=== PATIENT | male | born 1985 | race Caucasian/White ===

== ENCOUNTER 2019-09-15 13:03 | Emergency (ER) | payer SELFPAY ==
[2019-09-15 13:04] VITALS: BP 150/95; PULSE 75; RESP 14; TEMP 36.6; O2SAT 96; BMI 34.5
--- NOTE | 2019-09-15 14:07 | ED.DCSUM_ITS ---
- ER Visit Summary Date of Service: 09/15/19 Chief Complaint: [Headache] History of Present Illness: The patient is a 34 M [presents to the emergency department with 2-day history of persistent headache. Patient states that initially it started while driving back from [place] 2 days ago and was gradual and mild at first. Yesterday patient had multiple episodes of vomiting. Patient states the pain is throbbing and involving the left side of his head. He has history of frequent migraines. Patient's had neurologic evaluation in the past for these. Patient denies any falls or head injuries. He denies any fever or recent illness. Patient does complain of some photophobia.] Physical Examination: [HEENT-PERRLA, EOMI. Cranial nerves II through XII grossly intact. TMs clear. Mucous membranes moist. No adenopathy. Cardiovascular-regular rate and rhythm without murmur or ectopy Lungs-clear to auscultation, chest wall stable without crepitus or subcu emphysema Abdomen-normoactive bowel sounds, soft, nontender, no rebound or rigidity, no peritoneal signs. Neuro [id number] and heel corea testing within normal limits, negative Romberg, negative for drift, fundi benign. Extremities-intact ?4, normal range of motion, normal pulses, atraumatic] Test Results: [None indicated] Emergency Department Course and Treatment: [Patient had an IV line established and he was given a liter normal same fluid bolus as well as Reglan 10 mg IV, Benadryl 25 mg IV, and Toradol 30 mg IV. Patient's headache resolved.] Treatment Plan: [Patient follow-up with primary care physician transaction coordinator for no doc within next 3 to 5 days. Patient advised to return if worsening headache, difficulty with balance or speech, or conditions worsen anyway.] Disposition: [Discharged home in stable condition] Impression: [Migrainous cephalgia-resolved] This note was generated with [employer]onge dictation software. It may contain incorrect words, spelling, and punctuation that were not noted in review of the chart prior to signing ED Disposition - Plan for ED Patient: Referrals: NOT,DEFINED [NON-STAFF] -
[2019-09-15] MEDS: DiphenhydrAMINE 50 MG/ML Syringe 25 MG IV (14:22)
[2019-09-15] MEDS: Ketorolac 30 MG/ML Syringe IV (14:22)
[2019-09-15] MEDS: Metoclopramide 10 MG/2 ML Vial IV (14:22)
[2019-09-15] MEDS: 0.9% Normal Saline 1,000 ML 1000 ML IV (14:23)
--- NOTE | 2019-09-15 15:18 | ED.DEP ---
ED Disposition - Plan for ED Patient: Instructions: ED, Migraine (Classical) Referrals: NOT,DEFINED [NON-STAFF] - Regino Casas DO [STAFF PHYSICIAN] - 3-5 Days
[2019-09-15 15:30] VITALS: BP 124/76; PULSE 64; RESP 18; O2SAT 99
--- NOTE | 2019-09-15 15:30 | ED.RN ---
PT GIVEN WRITTEN AND VERBAL DISCHARGE INSTRUCTIONS AND HOME GOING PAPERS. PT EDUCATED ON INSTRUCTIONS AND FOLLOW UP. PT VERBALIZES UNDERSTANDING. EDUCATED NOT TO DRIVE AFTER HAVING BENADRYL FOR 6 HOURS BECAUSE OF DROWSINESS. PT VERBALIZES UNDERSTANDING, REPORTS IS DRIVING HOME. PT IV D/C AND COVERED WITH 2X2 GAUZE AND PAPER TAPE. PT AMBULATES OUT OF DEPT WITH .
== END 2019-09-15 15:32 | disposition home or self-care (01) ==
LOC: ED 14:23
PROVIDERS: Emergency Provider Emergency Medicine
DX: G43.909 Migraine, unspecified, not intractable, without status migrainosus (principal)
CPT/HCPCS: 99283; J7030

== ENCOUNTER 2022-01-30 18:25 | Emergency (ER) | payer SELFPAY ==
[2022-01-30 18:26] VITALS: BP 168/104; PULSE 107; RESP 18; TEMP 35.8; BMI 36.8
[2022-01-30 18:56] VITALS: BP 151/97
[2022-01-30 19:12] LABS: Hematocrit 44.8 % (40-54); Hemoglobin 15.3 g/dL (13.0-16.5); Mean Corp Hgb Conc 34.2 g/dL (32-36); Mean Corpuscular Hgb 29.1 pg (27.0-32.0); Mean Corpuscular Volume 85.2 fL (80-94); Mean Platelet Vol. 9.5 fl (6.2-12.0); Platelet Count 283 K/mm3 (150-450); RBC Distribution Width CV 12.5 % (11.6-14.6); RBC Distribution Width SD 38.7 fl (35.1-43.9); Red Blood Count 5.26 M/mm3 (4.6-6.2); White Blood Count 11.6 K/mm3 (4.4-11.0)
[2022-01-30 19:24] LABS: Anion Gap 3 (5-15); BUN 15 mg/dL (7-18); BUN/Creat Ratio 15.2 RATIO (10-20); Chloride 107 mmol/L (98-107); Creatinine, Serum 0.99 mg/dL (0.70-1.30); EST Glomerular Filtration Rate 90 mL/min (>60); Est Glom Filt Rate - Afr Amer 109 mL/min (>60); Estimated Creatinine Clearance 118.78 ml/min; Glucose 149 mg/dL (74-106); Potassium 3.8 mmol/L (3.5-5.1); Sodium Level 139 mmol/L (136-145)
--- NOTE | 2022-01-30 21:09 | EDS_ITS ---
HPI History of Present Illness Chief Complaint: Abn Labs Informant: patient Onset/Context/Timing Onset: Weeks Context: Gradual Onset Timing: Intermittent Current Severity: Mild Maximum Severity: Mild Narrative Narrative: 36-year-old male who goes to [facility] with the clinic here in [place] run my nurse practitioners. They have been watching him for some time for elevated blood pressure. They have just recently started him on losartan which I gave him a prescription today. His pressure was high in the office to give him a dose of hydralazine. They sent labs a troponin which was normal and a total CK which was elevated so they sent him in the emergency department. He has no other complaints. Prior similar symptoms: Yes Recent Illness/Hospitalization: No PFSH [facility] Medical History Anxiety Home Medications NK 09/15/19 [History Last Taken Unknown] Allergy/AdvReac Type Severity Reaction Status Date / Time No Known Allergies Allergy Verified 01/30/22 18:26 Social History Smoking Status: Never smoker ROS ROS ED ROS Narrative Denies. Review of Systems ROS Unobtainable: Denies due to encephalopathy Constitutional Constitutional ED: Denies fever(s) Eyes Eyes: Denies change in vision ENT ENT ED: Denies ear pain Cardiovascular Cardiovascular: Denies chest pain Respiratory/Chest Respiratory/Chest: Denies dyspnea Gastrointestinal Gastrointestinal: Denies abdominal pain Musculoskeletal Musculoskeletal: Denies myalgias Neurologic Neurologic: Denies headache(s) Psychiatric Psychiatric: Denies depression Endocrine Endocrinology: Denies polyuria Allergic/Immunologic Allergic/Immunologic ED: Denies urticaria EXAM Physical Exam Narrative Exam Narrative: 36 male no acute distress vital signs stable with blood pressure elevated 168/104. He does not look septic toxic. H EENT exam unremarkable. Neck nontender. Lungs clear to auscultation. Heart regular rhythm no murmur. Abdomen soft nontender normal bowel sounds no peritoneal signs. Moving all 4 extremities. Calves are nontender without edema or cords. Neurologically patient is awake alert with no focal motor deficits. Exam benign. Const Vital Signs: 01/30/22 18:26 01/30/22 18:56 Temperature 96.5 F L Temperature Source Temporal Pulse Rate 107 H Respiratory Rate 18 Respiratory Pattern Normal Blood Pressure 168/104 H 151/97 H Blood Pressure Mean 125 115 Positive well nourished, well developed and obese; Negative for cachectic, contractures or unkempt General Appearance ED: well developed and NAD; Negative for unkempt, cachectic, contractures, cyanotic, diaphoretic or pallor Nutritional Appearance: obese; Negative for cachectic HEENT Reports moist mucous membranes Negative for trauma or tenderness Eyes PERRL and EOMs intact bilaterally General Eye ED: Negative for pale conjunctiva or scleral icterus Neck no lymphadenopathy, supple and no JVD General: Negative for tenderness Chest Wall inspection of chest normal and palpation of chest normal Resp normal respiratory effort and clear to auscultation bilaterally Effort and Inspection: Negative for pain with movement Auscultation: Negative for rales, rhonchi, wheezes or diminished lung sounds Cardio regular rate, regular rhythm, S1 normal heart sound, S2 normal heart sound and no murmurs GI normal to inspection, nondistended, normoactive bowel sounds, non-tender, non- distended and no masses Auscultation: normoactive bowel sounds Palpation: soft; Negative for tender or guarding Back/Spine no CVA tenderness General Back: Negative for CVA tenderness Cervical Spine: Negative for cervical spine tenderness Thoracic Spine / Upper Back: Negative for thoracic spinal tenderness Extremity normal to inspection General Extremety ED: Negative for edema or tenderness General Extremity: Negative for edema Neuro oriented x3 and CN's II-XII intact bilaterally Sensorium / Orientation: alert; Negative for orientation impaired, lethargic or stuporous Motor Exam: strength 5/5 throughout Psych mental status grossly normal Appearance: Negative for unkempt Attitude: No agitated Mood & Affect: Negative for depressed, anxious or tearful Skin no rashes or lesions noted and no wounds General Skin Exam: Negative for jaundice or pallor MDM MDM MDM Narrative Medical decision making narrative: 36-year-old male with hypertension that has not been treated till today. They started him on losartan. He has a prescription at the pharmacy days already picked up. He was also given hydralazine in the office. I did speak screening labs are unremarkable his normal BUN and creatinine. He can do outpatient follow-up. Repeat exam he is doing well at 9:12 PM. Blood pressure is 151/97. He will be discharged home to start his blood pressure medication. Of instructed to log his blood pressures daily and follow-up with his primary care provider to have them adjust his blood pressure medications as needed. I will instruct him that I do not think he needs initially both blood pressure medications until they determine if the losartan is controlling his blood pressure appropriately. I did attempt to call his nurse practitioner and their office and was unsuccessful. Lab Data Attestation: I reviewed the patient's lab results. Lab results narrative: CBC shows a white count of 11. H&H of 15 and 44. Electrolytes unremarkable gap of 3 normal BUN of 15 creatinine 0.9 glucose 149. Labs: Laboratory Results - last 24 hr 01/30/22 01/30/22 19:00 19:00 WBC 11.6 H RBC 5.26 Hgb 15.3 Hct 44.8 MCV 85.2 MCH 29.1 MCHC 34.2 RDW Std Deviation 38.7 RDW Coeff of Maciej 12.5 Plt Count 283 MPV 9.5 Sodium 139 Potassium 3.8 Chloride 107 Carbon Dioxide 29.0 Anion Gap 3 L BUN 15 Creatinine 0.99 Estim Creat Clear Calc 118.78 Est GFR (MDRD) Af Amer 109 Est GFR (MDRD) Non-Af 90 BUN/Creatinine Ratio 15.2 Glucose 149 H Calcium 9.0 Discharge Plan Triage Chief Complaint: Abn Labs ED Provider: Lorne Siegel Dx/Rx/DC Orders Clinical Impression: Hypertension Instructions: ED Hypertension, Established Prescriptions: No Action NK RF: 0 Primary Care Provider: Ronna Kaufman NP Referrals: Ronna Kaufman WOOD POLE TREATER, WOOD POLE TREATER-C [Primary Care Provider] - 3-5 Days Activity Restrictions/Additional Instructions: Start the blood pressure medication daily I would use in the evening. Log your blood pressure twice daily. Show those readings your primary care provider so they can decide if they need to adjust your blood pressure medication. I would start with only the losartan. I would not start with 2 medications because they may drop your blood pressure too much. If the losartan does not control your blood pressure well they can always adjust the dose before they add a second medication. Disposition Disposition: Home, Self Care
[2022-01-30 21:17] VITALS: BP 143/95; PULSE 74; O2SAT 97
== END 2022-01-30 21:20 | disposition home or self-care (01) ==
PROVIDERS: Emergency Provider Emergency Medicine; PCP Nurse Practitioner Family; Visit Provider Emergency Medicine
DX: I10 Essential (primary) hypertension (principal); Z79.899 Other long term (current) drug therapy
CPT/HCPCS: 80048; 85027; 99283; A4216

== ENCOUNTER 2022-03-04 14:45 | Emergency (ER) | payer SELFPAY ==
[2022-03-04 14:46] VITALS: BP 151/94; PULSE 85; RESP 22; TEMP 36.5; O2SAT 99; BMI 36.9
--- NOTE | 2022-03-04 14:57 | NURSING ---
NO OLD EKGS
--- NOTE | 2022-03-04 15:08 | EKG12_ITS ---
Test Reason : CP Blood Pressure : / mmHG Vent. Rate : 082 BPM Atrial Rate : 082 BPM P-R Int : 168 ms QRS Dur : 086 ms QT Int : 360 ms P-R-T Axes : 036 015 009 degrees QTc Int : 420 ms Normal sinus rhythm Normal ECG Confirmed by WERO HUTCHINS, NICHELLE ([id number]), editor city JOEL CHEEK ([id number]) on 03/05/2022 1:02:08 PM Referred By: Confirmed By:NICHELLE CONTEH MD
--- NOTE | 2022-03-04 15:08 | RAD_ITS ---
STUDY: X-RAY CHEST REASON FOR EXAM: Male, 36 years old. chest pain TECHNIQUE: Single AP portable view of the chest. COMPARISON: None. FINDINGS: The lungs are clear and expanded. Elevated right hemidiaphragm. Normal size heart. Normal mediastinum and brenda. Normal visualized pulmonary arteries. Normal visualized aortic arch and descending thoracic aorta. Normal visualized thoracic spine. Normal visualized ribs, clavicles, and shoulders. There is no demonstrated abnormality of the visualized soft tissue structures of the upper abdomen. RAD/Chest 1 View (Portable) IMPRESSION: Normal x-ray examination of the chest. Electronically Signed: Aashish Sanchez MD at 16:01 EDT ,
--- NOTE | 2022-03-04 15:09 | ED.VIS.CHEST ---
HPI History of Present Illness Chief Complaint: Chest Pain Informant: patient and spouse/S.O. Narrative Narrative: 36-year-old male presenting to the emergency room for evaluation of chest pain. Patient states that he has recently begun treatment for hypertension. He takes hydralazine and HCTZ and losartan. He tells me that he has been experiencing chest tightness and tightness in his jaw. He states that his left hand is numb for the past 3 days. 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 He states that he feels that these episodes are happening when his blood pressure elevates. He states at times his blood pressure can be 120/80 and other times it can be 180/110. He states that he is trying to get health insurance so that he can get additional testing done. [facility] Medical History (Updated 03/04/22 @ 16:[address] Adalberto Landeros DO) Anxiety Hypertension Home Medications cholecalciferol (vitamin D3) [Vitamin D3] 125 mcg PO DAILY 03/04/22 [History Last Taken Unknown] hydralazine 25 mg PO DAILY 03/04/22 [History Last Taken Unknown] hydrochlorothiazide 25 mg PO DAILY 03/04/22 [History Last Taken Unknown] lamotrigine 25 mg PO DAILY 03/04/22 [History Last Taken Unknown] losartan 30 mg PO DAILY 03/04/22 [History Last Taken Unknown] riboflavin (vitamin B2) 400 mg PO DAILY 03/04/22 [History Last Taken Unknown] trazodone 100 mg PO DAILY 03/04/22 [History Last Taken Unknown] Allergy/AdvReac Type Severity Reaction Status Date / Time No Known Allergies Allergy Verified 03/04/22 14:46 Social History (Updated 03/04/22 @ 15:[address] Adalberto Landeros DO) household members: spouse and children current gender identity: male Smoking Status: Never smoker ROS ROS ED Constitutional Constitutional ED: Denies chills, fever(s) or weight loss Eyes Eyes: Denies change in vision or diplopia ENT ENT ED: Denies ear pain, rhinorrhea or sore throat Cardiovascular Cardiovascular: Reports chest pain; Denies orthopnea, palpitations or racing heartbeat Respiratory/Chest Respiratory/Chest: Reports dyspnea; Denies cough or orthopnea Gastrointestinal Gastrointestinal: Denies abdominal pain, diarrhea, nausea or vomiting Genitourinary Genitourinary ED: Denies dysuria, hematuria or urinary frequency Musculoskeletal Musculoskeletal: Reports neck pain; Denies arthralgias or myalgias Integumentary Denies abscess or rash Neurologic Neurologic: Reports paresthesias; Denies headache(s) or weakness Psychiatric Psychiatric: Denies anxiety, depression, suicidal ideation or suicidal thoughts Endocrine Endocrinology: Denies polydipsia, polyphagia or polyuria Allergic/Immunologic Allergic/Immunologic ED: Denies mouth swelling, tongue swelling or urticaria EXAM Physical Exam Const Vital Signs: 03/04/22 14:46 03/04/22 14:56 Temperature 97.7 F L Temperature Source Temporal Pulse Rate 85 Respiratory Rate 22 H Respiratory Effort Short of Breath Blood Pressure 151/94 H Blood Pressure Mean 113 Pulse Ox 99 Oxygen Delivery Method Room Air Positive well nourished and well developed General Appearance ED: well developed HEENT Reports normocephalic, head/scalp atraumatic and moist mucous membranes normocephalic and atraumatic Eyes PERRL and EOMs intact bilaterally Neck no lymphadenopathy, supple and no JVD Resp normal respiratory effort and clear to auscultation bilaterally Cardio regular rate, regular rhythm and no murmurs GI normal to inspection, nondistended, normoactive bowel sounds and non-tender Palpation: soft Back/Spine no CVA tenderness and normal ROM Extremity normal to inspection General Extremety ED: Negative for edema General Extremity: Negative for edema Neuro oriented x3 and CN's II-XII intact bilaterally Sensorium / Orientation: alert Motor Exam: strength 5/5 throughout Psych mental status grossly normal Mood & Affect: Negative for depressed or tearful Skin no rashes or lesions noted and no wounds MDM MDM MDM Narrative Medical decision making narrative: My interpretation of the chest x-ray is no acute process. CBC D-dimer troponin and CMP were normal. On repeat examination the patient is doing better. His blood pressure is down to 125/76. Patient was advised of his lab EKG and chest x-ray findings. Due to financial reasons patient would like to continue to try to this as an outpatient which I think is an understandable concern. We talked about taking an extra hydralazine when his pressure rises. We talked about potentially needing to see a spares scheduler if things continue. Lab Data Attestation: I reviewed the patient's lab results. Labs: Laboratory Results - last 24 hr 03/04/22 03/04/22 03/04/22 15:12 15:12 15:12 WBC 11.4 H RBC 4.95 Hgb 14.6 Hct 42.9 MCV 86.7 MCH 29.5 MCHC 34.0 RDW Std Deviation 39.8 RDW Coeff of Maciej 12.9 Plt Count 272 MPV 9.8 Immature Gran % (Auto) 0.400 Neut % (Auto) 61.4 Lymph % (Auto) 28.7 Darke % (Auto) 7.8 Eos % (Auto) 1.3 Baso % (Auto) 0.4 Absolute Neuts (auto) 7.0 Absolute Lymphs (auto) 3.26 Nucleated RBC % 0 D-Dimer Quant (PE/DVT) < 0.27 L Sodium 142 Potassium 3.7 Chloride 109 H Carbon Dioxide 27.0 Anion Gap 6 BUN 16 Creatinine 0.97 Estim Creat Clear Calc 117.84 Est GFR (MDRD) Af Amer 111 Est GFR (MDRD) Non-Af 92 BUN/Creatinine Ratio 16.4 Glucose 100 Calcium 8.5 Total Bilirubin 0.40 AST 25 ALT 55 Alkaline Phosphatase 54 Troponin I High Sens 5 Total Protein 6.6 Albumin 3.7 Globulin 2.9 Albumin/Globulin Ratio 1.3 Radiography Diagnostic Testing: Clinical Impression(s) from Imaging Studies Chest X-Ray 03/04/22 15:08 IMPRESSION: Normal x-ray examination of the chest. Electronically Signed: Aashish Sanchez MD at 16:01 EDT , EKG Initial EKG: Attestation: I personally reviewed and interpreted this EKG as follows: Comments: Normal sinus rhythm with a ventricular rate of 82 bpm Discharge Plan Triage Chief Complaint: Chest Pain Other Complaint: Hypertension ED Provider: Adalberto Landeros Dx/Rx/DC Orders Clinical Impression: Chest pain, Hypertension Instructions: ED Chest Pain, Uncertain Cause Prescriptions: No Action losartan 50 mg tablet 30 mg PO DAILY RF: 0 hydralazine 25 mg tablet 25 mg PO DAILY RF: 0 lamotrigine 25 mg tablet 25 mg PO DAILY RF: 0 trazodone 100 mg tablet 100 mg PO DAILY RF: 0 hydrochlorothiazide 25 mg tablet 25 mg PO DAILY RF: 0 cholecalciferol (vitamin D3) [Vitamin D3] 125 mcg (5,000 unit) Tablet 125 mcg PO DAILY RF: 0 riboflavin (vitamin B2) 400 mg Tablet 400 mg PO DAILY RF: 0 Primary Care Provider: Ronna Kaufman NP Referrals: Ronna Kaufman NP, FILLER SHREDDER HELPER-C [Primary Care Provider] - As soon as possible Disposition Disposition: Home, Self Care
[2022-03-04] MEDS: Aspirin 81 MG TAB.CHEW 324 MG PO (15:12)
[2022-03-04 15:17] LABS: Absolute Lymphocyte Count 3.26 X10^3/uL (0.83-4.51); Basophil# 0.05 X10^3/uL; Basophil% 0.4 % (0-1); Eosinophil# 0.15 X10^3/uL; Eosinophils% 1.3 % (0-5); Hematocrit 42.9 % (40-54); Hemoglobin 14.6 g/dL (13.0-16.5); Lymphocyte # 3.26 X10^3/ul (0.83-4.51); Lymphocyte % 28.7 % (19-41); Mean Corpuscular Hgb 29.5 pg (27.0-32.0); Mean Corpuscular Volume 86.7 fL (80-94); Mean Platelet Vol. 9.8 fl (6.2-12.0); Monocyte# 0.89 X10^3/uL; Monocyte% 7.8 % (0-10); NRBC Flagged by Analyzer 0 % (0-5); Neutrophil # 6.98 X10^3/uL (2.7-7.7); Neutrophil % 61.4 % (47-70); Platelet Count 272 K/mm3 (150-450); RBC Distribution Width CV 12.9 % (11.6-14.6); RBC Distribution Width SD 39.8 fl (35.1-43.9); Red Blood Count 4.95 M/mm3 (4.6-6.2); White Blood Count 11.4 K/mm3 (4.4-11.0)
[2022-03-04 15:29] LABS: D-Dimer Quantitative (DVT/PE) < 0.27 FEU/ug/m (0.27-0.49)
[2022-03-04 15:37] LABS: ALB/GLOB Ratio 1.3 RATIO (0.9-2.4); AST(SGOT) 25 U/L (15-37); Alanine Aminotransfer ALT/SGPT 55 U/L (16-61); Albumin, Serum 3.7 g/dL (3.2-5.0); Alkaline Phosphatase 54 U/L (45-117); Anion Gap 6 (5-15); BUN 16 mg/dL (7-18); BUN/Creat Ratio 16.4 RATIO (10-20); Calcium,Total 8.5 mg/dL (8.5-10.1); Chloride 109 mmol/L (98-107); Creatinine, Serum 0.97 mg/dL (0.70-1.30); EST Glomerular Filtration Rate 92 mL/min (>60); Est Glom Filt Rate - Afr Amer 111 mL/min (>60); Estimated Creatinine Clearance 117.84 ml/min; Globulin 2.9 g/dL (2.2-4.2); Glucose 100 mg/dL (74-106); Potassium 3.7 mmol/L (3.5-5.1); Protein, Total 6.6 g/dL (6.4-8.2); Sodium Level 142 mmol/L (136-145); Troponin-I HS (w/2H Reflex) 5 pg/mL (3.0-78.0)
[2022-03-04 16:12] VITALS: BP 125/77; PULSE 74; RESP 16; O2SAT 98
[2022-03-04 17:14] LABS: Reflex Troponin-HS? (from REC) Y
[2022-03-04 17:21] LABS: Thyroid Stim Hormone (TSH) 1.19 uIU/mL (0.358-3.74)
== END 2022-03-04 16:22 | disposition home or self-care (01) ==
PROVIDERS: Emergency Provider Emergency Medicine; PCP Nurse Practitioner Family; Visit Provider Emergency Medicine
DX: R07.89 Other chest pain (principal); I10 Essential (primary) hypertension; Z79.899 Other long term (current) drug therapy
CPT/HCPCS: 71045; 80053; 84443; 84484; 85025; 85379; 93005; 99285; A4216

== ENCOUNTER 2022-03-07 18:35 | Observation (INO) | payer SELFPAY ==
[2022-03-07 18:35] VITALS: BP 128/92; PULSE 98; RESP 18; TEMP 36.1; O2SAT 98; BMI 36.3
[2022-03-07 18:43] VITALS: PULSE 92; RESP 22; O2SAT 98
--- NOTE | 2022-03-07 18:50 | EKG12_ITS ---
Test Reason : CP Blood Pressure : / mmHG Vent. Rate : 089 BPM Atrial Rate : 089 BPM P-R Int : 158 ms QRS Dur : 080 ms QT Int : 336 ms P-R-T Axes : 022 026 016 degrees QTc Int : 408 ms Normal sinus rhythm Septal infarct , age undetermined , cannot be excluded Abnormal ECG Confirmed by YOSSI HUTCHINS, CHICA ([id number]), photo editor JOEL CHEEK ([id number]) on 03/08/2022 8:44:35 AM Referred By: Confirmed By:CHICA SY MD
--- NOTE | 2022-03-07 18:51 | EDS_ITS ---
HPI History of Present Illness Chief Complaint: Chest Pain Informant: patient Narrative Narrative: 6-year-old male presenting to the emergency department chief complaint of dyspnea and chest pain. Patient was seen on Saturday with the same symptoms and had a negative D-dimer negative troponin negative EKG. He was referred to primary care for stress testing. Patient states that he took it very easy on Saturday and Saturday. Today he walked [address] into [facility] and began to experience shortness of breath chest tightness jaw tightness in the left arm paresthesias. He states that he was diaphoretic. He took his blood pressure and it was elevated. He notes that his heart rate was in the 130s. Symptoms did get better but not quickly. His blood pressure is down now. He will he talk to his primary care doctor who had already begun working on stress test. Patient's symptoms were persisting so he decided to come to emergency. [facility] Medical History Anxiety Hypertension Home Medications cholecalciferol (vitamin D3) [Vitamin D3] 125 mcg PO DAILY 03/04/22 [History Last Taken Unknown] hydralazine 25 mg PO DAILY 03/04/22 [History Last Taken Unknown] hydrochlorothiazide 25 mg PO DAILY 03/04/22 [History Last Taken Unknown] lamotrigine 25 mg PO DAILY 03/04/22 [History Last Taken Unknown] losartan 30 mg PO DAILY 03/04/22 [History Last Taken Unknown] riboflavin (vitamin B2) 400 mg PO DAILY 03/04/22 [History Last Taken Unknown] trazodone 100 mg PO QHS 03/04/22 [History Last Taken Unknown] Allergy/AdvReac Type Severity Reaction Status Date / Time No Known Allergies Allergy Verified 03/07/22 18:37 Social History household members: spouse and children Smoking Status: Never smoker ROS ROS ED Constitutional Constitutional ED: Denies chills, fever(s) or weight loss Eyes Eyes: Denies change in vision or diplopia ENT ENT ED: Denies ear pain, rhinorrhea or sore throat Cardiovascular Cardiovascular: Reports as per HPI, chest pain and racing heartbeat; Denies orthopnea or palpitations Respiratory/Chest Respiratory/Chest: Reports dyspnea; Denies cough or orthopnea Gastrointestinal Gastrointestinal: Denies abdominal pain, diarrhea, nausea or vomiting Genitourinary Genitourinary ED: Denies dysuria, hematuria or urinary frequency Musculoskeletal Musculoskeletal: Denies arthralgias or myalgias Integumentary Denies abscess or rash Neurologic Neurologic: Reports paresthesias; Denies headache(s) or weakness Psychiatric Psychiatric: Denies anxiety, depression, suicidal ideation or suicidal thoughts Endocrine Endocrinology: Denies polydipsia, polyphagia or polyuria Allergic/Immunologic Allergic/Immunologic ED: Denies mouth swelling, tongue swelling or urticaria EXAM Physical Exam Const Vital Signs: 03/07/22 18:35 03/07/22 18:43 03/07/22 18:58 Temperature 97 F L Temperature Source Temporal Pulse Rate 98 92 Respiratory Rate 18 22 H Respiratory Effort Short of Breath Blood Pressure 128/92 H Blood Pressure Mean 104 Pulse Ox 98 98 Oxygen Delivery Method Room Air Room Air Positive well nourished, well developed and obese General Appearance ED: well developed Nutritional Appearance: obese HEENT Reports normocephalic, head/scalp atraumatic and moist mucous membranes normocephalic and atraumatic Eyes PERRL and EOMs intact bilaterally Neck no lymphadenopathy, supple and no JVD Resp normal respiratory effort and clear to auscultation bilaterally Cardio regular rate, regular rhythm and no murmurs GI normal to inspection, nondistended, normoactive bowel sounds and non-tender Palpation: soft Back/Spine no CVA tenderness and normal ROM Extremity normal to inspection General Extremety ED: Negative for edema General Extremity: Negative for edema Neuro oriented x3 and CN's II-XII intact bilaterally Sensorium / Orientation: alert Motor Exam: strength 5/5 throughout Psych mental status grossly normal Mood & Affect: Negative for depressed or tearful Skin no rashes or lesions noted and no wounds Heart Score History: Moderately Suspicious ECG: Normal Age: </= 45 years Risk Factors: 1 or 2 Risk Factors Troponin: </= Normal Limit Score: 2 MDM MDM MDM Narrative Medical decision making narrative: Patient's EKG is a normal sinus rhythm. My interpretation of his chest x-ray is no acute process. His initial troponin today is 25 which is still in the normal range. White count nonspecifically elevated 12.4. Creatinine 1.03. Patient received aspirin. Given the patient's symptoms and his return visit in just a few days I do think it is reasonable to bring him in and obtain stress testing. We can watch him on the monitor for dysrhythmias. Lab Data Attestation: I reviewed the patient's lab results. Labs: Laboratory Results - last 24 hr 03/07/22 03/07/22 18:33 18:33 WBC 12.4 H RBC 5.35 Hgb 15.8 Hct 45.7 MCV 85.4 MCH 29.5 MCHC 34.6 RDW Std Deviation 40.0 RDW Coeff of Maciej 13.1 Plt Count 279 MPV 9.8 Immature Gran % (Auto) 0.500 Neut % (Auto) 61.9 Lymph % (Auto) 29.6 [place] % (Auto) 6.9 Eos % (Auto) 0.8 Baso % (Auto) 0.3 Absolute Neuts (auto) 7.7 Absolute Lymphs (auto) 3.67 Nucleated RBC % 0 Sodium 142 Potassium 4.0 Chloride 111 H Carbon Dioxide 24.0 Anion Gap 7 BUN 13 Creatinine 1.03 Estim Creat Clear Calc 110.97 Est GFR (MDRD) Af Amer 104 Est GFR (MDRD) Non-Af 86 BUN/Creatinine Ratio 12.6 Glucose 108 H Calcium 9.1 Troponin I High Sens 25 Radiography Diagnostic Testing: Clinical Impression(s) from Imaging Studies Chest X-Ray 03/07/22 19:00 IMPRESSION: Nonacute portable x-ray examination of the chest. Electronically Signed: Subhash Mosley MD ([place]) at 19:20 EDT , EKG Initial EKG: Attestation: I personally reviewed and interpreted this EKG as follows: Comments: Normal sinus rhythm with a ventricular rate of 89 bpm Prior EKG tracings: available for review Prior: Unchanged Discharge Plan Dx/Rx/DC Orders Clinical Impression: Chest pain, Acute dyspnea, Hypertension Disposition Disposition: Acute Care Hospital [facility]
[2022-03-07] MEDS: Aspirin 81 MG TAB.CHEW 324 MG PO (18:57)
[2022-03-07 19:00] LABS: Absolute Lymphocyte Count 3.67 X10^3/uL (0.83-4.51); Absolute Neutrophil Count 7.7 X10^3/uL (2.0-7.7); Basophil# 0.04 X10^3/uL; Basophil% 0.3 % (0-1); Eosinophils% 0.8 % (0-5); Hematocrit 45.7 % (40-54); Hemoglobin 15.8 g/dL (13.0-16.5); Lymphocyte # 3.67 X10^3/ul (0.83-4.51); Lymphocyte % 29.6 % (19-41); Mean Corp Hgb Conc 34.6 g/dL (32-36); Mean Corpuscular Hgb 29.5 pg (27.0-32.0); Mean Corpuscular Volume 85.4 fL (80-94); Mean Platelet Vol. 9.8 fl (6.2-12.0); Monocyte# 0.85 X10^3/uL; Monocyte% 6.9 % (0-10); NRBC Flagged by Analyzer 0 % (0-5); Neutrophil # 7.66 X10^3/uL (2.7-7.7); Neutrophil % 61.9 % (47-70); Platelet Count 279 K/mm3 (150-450); RBC Distribution Width CV 13.1 % (11.6-14.6); Red Blood Count 5.35 M/mm3 (4.6-6.2); White Blood Count 12.4 K/mm3 (4.4-11.0)
--- NOTE | 2022-03-07 19:00 | RAD_ITS ---
STUDY: X-RAY CHEST REASON FOR EXAM: Male, 36 years old. chest pain TECHNIQUE: AP COMPARISON: 03/04/2022 FINDINGS: EKG leads project over the chest. The lungs are clear and expanded. There is no demonstrated pleural abnormality. Normal size heart. Normal mediastinum and brenda. Normal visualized pulmonary arteries. Normal visualized aortic arch and descending thoracic aorta. Normal visualized thoracic spine. Normal visualized ribs, clavicles, and shoulders. There is no demonstrated abnormality of the visualized soft tissue structures of the upper abdomen. RAD/Chest 1 View (Portable) IMPRESSION: Nonacute portable x-ray examination of the chest. Electronically Signed: Subhash Mosley MD (Brooks) at 19:20 EDT ,
[2022-03-07 19:18] LABS: Anion Gap 7 (5-15); BUN 13 mg/dL (7-18); BUN/Creat Ratio 12.6 RATIO (10-20); Calcium,Total 9.1 mg/dL (8.5-10.1); Chloride 111 mmol/L (98-107); Creatinine, Serum 1.03 mg/dL (0.70-1.30); EST Glomerular Filtration Rate 86 mL/min (>60); Est Glom Filt Rate - Afr Amer 104 mL/min (>60); Estimated Creatinine Clearance 110.97 ml/min; Glucose 108 mg/dL (74-106); Sodium Level 142 mmol/L (136-145); Troponin-I HS (w/2H Reflex) 25 pg/mL (3.0-78.0)
[2022-03-07 19:27] VITALS: BP 140/96; PULSE 95; RESP 24; O2SAT 93
--- NOTE | 2022-03-07 19:30 | HP.PCM.HOS_ITS ---
[facility] - General General Date of Admission: 03/07/22 HPI Narrative JO ANN KHANNA, is a 36 M with a significant history of hypertension; and bipolar disorder on lamotrigine and trazodone who presents to the emergency department with progressively worsening chest pain that started before 2021. His chest pain is intermittent but on the day of presentation it was persistent. Associated with his symptoms is nausea, vomiting, diaphoresis and shortness of breath. Further he has headache. His blood pressure has been severely elevated and for which reason he was started on blood pressure medications outpatient. Even though he is compliant with his blood pressure medication his blood pressure has stayed elevated. On the day of presentation he walked about 15 Parking spots and he became severely dyspneic. He reports orthopnea and paroxysmal nocturnal dyspnea. His chest pain is primarily under his left breast and is radiated to his substernal area to his left neck and to under his left armpit. Further he has pain in his left upper extremity He described his chest pain as sharp . His PCP was trying to get an outpatient stress test set up but with his persistent symptoms he came to the emergency department for further evaluation. Of note the patient was at emergency department 3 days ago for the same symptoms. [facility] Medical History Anxiety Hypertension Home Medications cholecalciferol (vitamin D3) [Vitamin D3] 125 mcg PO DAILY 03/04/22 [History Last Taken Unknown] hydralazine 25 mg PO DAILY 03/04/22 [History Last Taken Unknown] hydrochlorothiazide 25 mg PO DAILY 03/04/22 [History Last Taken Unknown] lamotrigine 25 mg PO DAILY 03/04/22 [History Last Taken Unknown] losartan 30 mg PO DAILY 03/04/22 [History Last Taken Unknown] riboflavin (vitamin B2) 400 mg PO DAILY 03/04/22 [History Last Taken Unknown] trazodone 100 mg PO QHS 03/04/22 [History Last Taken Unknown] Allergy/AdvReac Type Severity Reaction Status Date / Time No Known Allergies Allergy Verified 03/07/22 18:37 Family History Other Diabetes Heart disease Hypertension no surgical history Social History household members: spouse and children Smoking Status: Never smoker ROS ROS Narrative Constitutional: Denies fever, chills. He reports fatigue and about 10 pound weight loss in the past 4 weeks. He reports anorexia. Eyes: Denies blurry vision, change in eye color, change in vision, discharge from eye(s), double vision, erythema, eye pain, loss of vision or other HEENT: He reports headaches. Denies abnormal hearing, dysphagia, ear pain, epistaxis, hearing loss, nasal congestion, nasal discharge, post nasal drip, sinus pressure, sore throat or other Cardiovascular: He reports chest pain; dyspnea on exertion; orthopnea and proximal nocturnal dyspnea. He denies palpitations. Respiratory/Chest: He report shortness of breath. Denies cough, excessive phlegm production. Gastrointestinal: Reports nausea and vomiting. Denies abdominal pain, coffee ground emesis, constipation, diarrhea, dyspepsia, hematemesis, hematochezia, l oose stools, melena. Genitourinary: Denies burning urination, difficulty urinating, dysuria, hematu lucy, nocturia, urinary frequency, urinary hesitancy, urinary incontinence, urinary urgency or other Musculoskeletal: Denies arthralgias, back pain, joint pain, joint stiffness, joint swelling, myalgias, or other Neurologic: Denies abnormal gait, abnormal speech, confusion, disequilibrium, dizziness, focal weakness, numbness, paresthesias, seizure-like activity, seizures, syncope, tingling, tremor(s) or other Psychiatric: Has depression and anxiety. Denies homicidal ideation, suicidal ideation or other Endocrinology: Denies change in body appearance, cold intolerance, excessive sweating, heat intolerance, polydipsia, polyuria or other Hematologic/Lymphatic: Denies anemia, easy bleeding, easy bruising, lymphadenopathy or other Integumentary: Denies rashes Allergic/Immunologic: Denies rhinitis, hives, eczema, or other Vital Signs Vital Signs Vital Signs: 03/07/22 18:35 03/07/22 18:43 03/07/22 18:58 Temperature 97 F L Temperature Source Temporal Pulse Rate 98 92 Respiratory Rate 18 22 H Respiratory Effort Short of Breath Blood Pressure 128/92 H Blood Pressure Mean 104 Pulse Ox 98 98 Oxygen Delivery Method Room Air Room Air 03/07/22 19:27 Temperature Temperature Source Pulse Rate 95 Respiratory Rate 24 H Respiratory Effort Blood Pressure 140/96 H Blood Pressure Mean 110 Pulse Ox 93 Oxygen Delivery Method Room Air Weight Weight: 124.738 kg Body Mass Index (BMI) 36.3 Physical Exam Narrative Physical exam: General: Well-nourished, well-developed. Head: Normocephalic, atraumatic, no tenderness Eyes: Vision is grossly intact. EOMI ENT, no trauma, moist mucous membranes, no rhinorrhea Neck: Nontender, full range of motion, no spinal tenderness, deformities, step- off CVS: Regular rate and rhythm. S1-S2 present. No murmur, gallop or rub. Respiratory : clear to auscultation bilaterally, chest wall nontender, no whee zing Abdomen: Soft, nontender, nondistended, normal bowel sounds, no masses : Deferred Back: Nontender, no CVA tenderness, no midline spinal tenderness, deformities, step-offs Extremities: Nontender full range of motion, no trauma Skin: Normal color, no trauma, abrasions Neuro: Alert, oriented, cranial nerves II through XII grossly intact. Psychiatry: Anxious. Not depressed. Results Lab / Micro Data Result Diagrams: 03/07/22 18:33 03/07/22 18:33 Labs: Laboratory Results - last 24 hr 03/07/22 18:33: WBC 12.4 H, RBC 5.35, Hgb 15.8, Hct 45.7, MCV 85.4, MCH 29.5, MCHC 34.6, RDW Std Deviation 40.0, RDW Coeff of Maciej 13.1, Plt Count 279, MPV 9.8, Immature Gran % (Auto) 0.500, Neut % (Auto) 61.9, Lymph % (Auto) 29.6, [place]illingham % (Auto) 6.9, Eos % (Auto) 0.8, Baso % (Auto) 0.3, Absolute Neuts (auto) 7.7, Absolute Lymphs (auto) 3.67, Nucleated RBC % 0 03/07/22 18:33: Sodium 142, Potassium 4.0, Chloride 111 H, Carbon Dioxide 24.0, Anion Gap 7, BUN 13, Creatinine 1.03, Estim Creat Clear Calc 110.97, Est GFR (MDRD) Af Amer 104, Est GFR (MDRD) Non-Af 86, BUN/Creatinine Ratio 12.6, Glucose 108 H, Calcium 9.1, Troponin I High Sens 25 Radiology Impression Chest X-Ray 03/07/22 19:00 IMPRESSION: Nonacute portable x-ray examination of the chest. Electronically Signed: Subhash Mosley MD (Brooks) at 19:20 EDT Reading Location ID and State: [facility] / [place] , Service support , Assessment & Plan Assessment/Plan (1) Chest pain: QUALIFIERS: Chest pain type: other chest pain Qualified Code(s): R07.89 - Other chest pain (2) Angina at rest: (3) Hypertension: QUALIFIERS: Hypertension type: primary hypertension Qualified Code(s): I10 - Essential (primary) hypertension PLAN: Angina at rest Place on a monitored bed at progressive care unit Actual CXR image was independently visualized. No acute cardiopulmonary process was noted. Actual EKG tracing was independently visualized. EKG tracing showed T wave versions in leads III; and T wave flattening in aVF. Left axis deviation noted. Q waves in V1 V2. Received full dose aspirin at the emergency department. ASA 81 mg p.o. daily ordered SL NTG 0.4 mg prn as needed for chest pain ordered Morphine as needed for pain ordered We will check lipid panel. Initial high sensitivity troponin was 25. Serial cardiac enzymes ordered Stat EKG as needed for chest pain Treadmill stress test in the AM if the cardiac enzymes are negative. Echocardiogram ordered. CBC showed mild leukocytosis of 12.4; trend Hypertension Blood pressure is not within goal Hydralazine, hydrochlorothiazide and losartan continued. As needed hydralazine ordered. Trend blood pressure and adjust blood pressure medications. DVT prophylaxis SCDs ordered Charges/Coding Visit Charges OBSV E&M: 56757 Initial observation care L3
[2022-03-07 19:47] VITALS: BP 128/66; PULSE 89; RESP 14; TEMP 37.3; O2SAT 99
--- NOTE | 2022-03-07 20:17 | ECHOCS_ITS ---
Reason For Study: DYSPNEA/SOB Procedure This was a 2D Doppler, Color Flow transthoracic echocardiogram. The study was technically difficult. Exam performed in department. Left Ventricle Normal left ventricle. The estimated ejection fraction is 55-60 %. Right Ventricle Normal right ventricle. Normal systolic function. Atria Normal left atrium. Normal right atrium. Mitral Valve The mitral valve is structurally normal. No prolapse or stenosis seen. No mitral valve insufficiency. Tricuspid Valve Normal tricuspid valve. No tricuspid valve insufficiency. Aortic Valve Normal aortic valve. Pulmonic Valve The pulmonic valve is not well visualized. Great Vessels Normal aortic root. Pericardium/Pleural No pericardial effusion. Medication Diluted definity 3ml given slow IV push to enhance endocardial definition. MMode/2D Measurements & Calculations LVIDd: 4.3 cm IVSd: 1.0 cm Ao root diam: 3.4 cm LVIDs: 2.9 cm LVPWd: 1.0 cm RVDd: 3.7 cm FS: 31.6 % LAV(MOD-bp): 32.9 ml LVAd ap4: 37.8 cm2 SV(MOD-sp4): 73.3 ml LAV(MOD-bp) Indexed: 13.2 ml/m2 LVLd ap4: 9.5 cm LAV(MOD-sp2): 32.2 ml EDV(MOD-sp4): 121.8 ml LAV(MOD-sp4): 31.5 ml EDV(sp4-el): 127.1 ml LVAs ap4: 21.6 cm2 LVLs ap4: 8.4 cm ESV(MOD-sp4): 48.5 ml ESV(sp4-el): 47.1 ml EF(MOD-sp4): 60.2 % EF(sp4-el): 62.9 % SV(sp4-el): 80.0 ml LA A4 area: 13.8 cm2 LA dimension(2D): 3.7 cm RA A4 area: 13.3 cm2 Time Measurements MV dec time: 0.25 sec Doppler Measurements & Calculations MV E max nghia: 67.5 cm/sec Lat Peak E' Nghia: 11.6 cm/sec Med Peak E' Nghia: 10.0 cm/sec MV A max nghia: 65.4 cm/sec E/E' lat: 5.8 E/E' med: 6.7 MV E/A: 1.0 Ao V2 max: 111.5 cm/sec LV V1 max: 94.5 cm/sec PA V2 max: 108.9 cm/sec Ao max P.0 mmHg LV V1 max P.6 mmHg TR max nghia: 234.7 cm/sec TR max P.0 mmHg ECHO/Echo Complete W/ Contrast Interpretation Summary The estimated ejection fraction is 55-60 %. Normal LV systjolic function RVSP within normal 25 mmhg Ordering Physician: Hong Spicer Referring Physician: MIGUE GREEN Performed By: Adeline Mercado RDCS
--- NOTE | 2022-03-07 20:17 | EKG12_ITS ---
Test Reason : AM EKG Blood Pressure : / mmHG Vent. Rate : 060 BPM Atrial Rate : 060 BPM P-R Int : 168 ms QRS Dur : 082 ms QT Int : 422 ms P-R-T Axes : 012 017 002 degrees QTc Int : 422 ms Normal sinus rhythm Septal infarct , age undetermined , cannot be excluded Abnormal ECG Confirmed by YOSSI HUTCHINS, CHICA ([id number]), video tape editor JOEL CHEEK ([id number]) on 03/08/2022 1:04:49 PM Referred By: VIKKI Confirmed By:CHICA SY MD
[2022-03-07 20:22] VITALS: BP 137/95; PULSE 83; RESP 18; TEMP 36.3; O2SAT 96
[2022-03-07 20:24] VITALS: BMI 37.5
[2022-03-07 20:33] VITALS: PULSE 87
[2022-03-07 20:58] LABS: Reflex Troponin-HS? (from REC) Y
[2022-03-07] MEDS: traZODone 100 MG Tablet PO (21:00)
[2022-03-07 21:30] LABS: Troponin-I HS 18 pg/mL (3.0-78.0)
[2022-03-08] VITALS (8 sets, daily range): BP systolic 119–131; BP diastolic 83–95; PULSE 55–76; RESP 17–18; TEMP 36.4–36.7; O2SAT 95–99
[2022-03-08 01:18] LABS: Troponin-I HS 14 pg/mL (3.0-78.0)
[2022-03-08 05:51] LABS: Absolute Lymphocyte Count 3.15 X10^3/uL (0.83-4.51); Absolute Neutrophil Count 4.4 X10^3/uL (2.0-7.7); Basophil# 0.03 X10^3/uL; Basophil% 0.3 % (0-1); Eosinophil# 0.15 X10^3/uL; Eosinophils% 1.7 % (0-5); Hematocrit 42.5 % (40-54); Hemoglobin 14.3 g/dL (13.0-16.5); Lymphocyte # 3.15 X10^3/ul (0.83-4.51); Lymphocyte % 36.5 % (19-41); Mean Corp Hgb Conc 33.6 g/dL (32-36); Mean Corpuscular Hgb 29.4 pg (27.0-32.0); Mean Corpuscular Volume 87.3 fL (80-94); Monocyte% 9.3 % (0-10); NRBC Flagged by Analyzer 0 % (0-5); Neutrophil # 4.43 X10^3/uL (2.7-7.7); Neutrophil % 51.5 % (47-70); Platelet Count 234 K/mm3 (150-450); RBC Distribution Width CV 13.3 % (11.6-14.6); Red Blood Count 4.87 M/mm3 (4.6-6.2); White Blood Count 8.6 K/mm3 (4.4-11.0)
--- NOTE | 2022-03-08 05:55 | EKG12_ITS ---
Test Reason : ADM EKG Blood Pressure : / mmHG Vent. Rate : 083 BPM Atrial Rate : 083 BPM P-R Int : 164 ms QRS Dur : 082 ms QT Int : 354 ms P-R-T Axes : 019 013 002 degrees QTc Int : 415 ms Normal sinus rhythm Left ventricular hypertrophy Septal AZ, age undetermined, cannot be excluded Abnormal ECG Confirmed by YOSSI HUTCHINS, CHICA ([id number]), development editor JOEL CHEEK ([id number]) on 03/08/2022 1:05:15 PM Referred By: VIKKI Confirmed By:CHICA SY MD
[2022-03-08] MEDS: Losartan Potassium 50 MG Tablet PO (06:13)
[2022-03-08] MEDS: Aspirin E.C. 81 MG Tablet PO (06:14)
[2022-03-08] MEDS: hydrALAZINE 25 MG Tablet PO (06:14)
[2022-03-08 06:32] LABS: Anion Gap 6 (5-15); BUN 17 mg/dL (7-18); BUN/Creat Ratio 17.9 RATIO (10-20); Calcium,Total 8.6 mg/dL (8.5-10.1); Chloride 109 mmol/L (98-107); Cholesterol 107 mg/dL (200); Creatinine, Serum 0.95 mg/dL (0.70-1.30); EST Glomerular Filtration Rate 95 mL/min (>60); Est Glom Filt Rate - Afr Amer 114 mL/min (>60); Estimated Creatinine Clearance 120.32 ml/min; Glucose 108 mg/dL (74-106); High Density Lipoprotein 28 mg/dL; Potassium 3.7 mmol/L (3.5-5.1); Sodium Level 140 mmol/L (136-145); Triglycerides 123 mg/dL; Very Low Density Lipoprotein 25 mg/dL (5-40)
[2022-03-08] MEDS: lamoTRIgine 25 MG Tablet PO (12:00)
[2022-03-08] MEDS: hydroCHLOROthiazide 25 MG Tablet PO (12:00)
[2022-03-08] MEDS: Cholecalciferol (Vit D3) 125 MCG CAPSULE (5,000 UNITS) PO (12:00)
--- NOTE | 2022-03-08 12:01 | NURSING ---
1000 medication given late due to pt being off the floor for stress test.
--- NOTE | 2022-03-08 13:15 | STRESSREP_ITS ---
Stress Test Report Treadmill sestamibi myocardial perfusion stress test. Indication; 36-year-old patient significant history of hypertension bipolar disorder who presented with symptoms of chest pain which was progressively worsening he had a persistent symptoms of chest pain symptoms of headache. He was actually scheduled for outpatient stress test by his primary care physician however due to persistent symptoms of chest pain he came to the ER admitted and scheduled for a treadmill sestamibi. Stress protocol: Resting EKG demonstrates. Normal sinus rhythm. Patient exercised according to standard German protocol for 8 minutes, achieving a work level of maximum METS 10.4. The resting heart rate of 58 bpm, tien to a maximum heart rate of 162 bpm. This value represented 88% of the maximal age-predicted heart rate. The resting blood pressure of 138/94 mmHg, this tien to a maximum blood pressure of 204/94 mmHg. Exercise test was stopped due to symptoms of dyspnea also patient reaches target heart rate. Resting EKG showed normal sinus with nonspecific ST-T change Stress EKG showed[, no significant change from the resting EKG, with maximum heart rate of 162 bpm. Arrhythmia: No arrhythmia demonstrated Symptoms: Has chest pain with shortness of breath Myocardial perfusion protocol. 14.5 mCi ]of Technetium 99m Sestamibi was injected at rest. Following maximal stress patient was given 44 mCi ]of Technetium 99m sestamibi was injected. Stress images were obtained stress and rest images were reconstructed and compared in the short axis vertical and horizontal long axis. Gated images were also obtained Perfusion SPECT analysis: Review of the images demonstrate normal uptake of sestamibi at rest, post stress images demonstrate similar uptake of sestamibi to the resting images, homogeneous tracer uptake With no evidence of reversible myocardial ischemia. Gated SPECT analysis: The gated ejection fraction is 64%. Normal LV systolic function with normal left ventricular wall motion Conclusion: Negative treadmill sestamibi myocardial perfusion study for significant ischemia Normal LV systolic function Jason Woodard MD,FACC,[facility]
--- NOTE | 2022-03-08 13:43 | DCINST_ITS ---
Discharge Instructions Diet Discharge Diet: No restrictions Activity Discharge Activity: Return to Normal Activity Weight Bearing Status: Weight bearing as tolerated Dressing / Incision Call your doctor if you observe: Fever of 101 or Higher, Numbness or Tingling, Shortness of breath, Dizziness, Chest pain, Increased palpitations (irregular heartbeat) and Calf discomfort Follow Up Care Please Follow Up With: Primary care provider When: Within the next two weeks. Test Results: Test results from this visit will be discussed in further detail at your follow-up appointment, if applicable. Discharge Plan Admission Admit Date/Time: 03/07/22 19:25 Primary Reason for Your Visit: Chest pain Attending Provider: Bianka Kay Primary Care Provider: Ronna Kaufman NP Consulting Providers: Hong Spicer Discharge Orders/Prescriptions Prescriptions: New pantoprazole 40 mg tablet,delayed release (DR/EC) 40 mg PO DAILY Qty: 30 RF: 0 Continued losartan 50 mg tablet 50 mg PO DAILY RF: 0 hydralazine 25 mg tablet 25 mg PO DAILY RF: 0 lamotrigine 25 mg tablet 25 mg PO DAILY RF: 0 trazodone 100 mg tablet 100 mg PO QHS RF: 0 hydrochlorothiazide 25 mg tablet 25 mg PO DAILY RF: 0 cholecalciferol (vitamin D3) [Vitamin D3] 125 mcg (5,000 unit) Tablet 125 mcg PO DAILY RF: 0 riboflavin (vitamin B2) 400 mg Tablet 400 mg PO DAILY RF: 0 Referrals / Follow Up: Ronna Kaufman NP, [employer] [Primary Care Provider] - Within 2 Weeks Disposition Disposition (needs filled in before D/C Order can be placed): Home, Self Care
--- NOTE | 2022-03-08 14:29 | PCM.DC.SUM ---
Documented by User: Pete ALFONSO 03/08/22 14:39 Providers Date of Admission: 03/07/22 Date of Discharge: 03/08/22 Primary Care Physician: DOM Mcintosh Reason For Visit: CHEST PAIN Diagnosis Discharge Diagnosis (1) Chest pain: Status: Acute Code(s): R07.9 - Chest pain, unspecified Qualifiers: Chest pain type: other chest pain Qualified Code(s): R07.89 - Other chest pain (2) Angina at rest: Status: Acute Code(s): I20.8 - Other forms of angina pectoris (3) Hypertension: Status: Chronic Code(s): I10 - Essential (primary) hypertension Qualifiers: Hypertension type: primary hypertension Qualified Code(s): I10 - Essential (primary) hypertension Medications at Discharge Home Medications cholecalciferol (vitamin D3) [Vitamin D3] 125 mcg PO DAILY 03/04/22 hydralazine 25 mg PO DAILY 03/04/22 hydrochlorothiazide 25 mg PO DAILY 03/04/22 lamotrigine 25 mg PO DAILY 03/04/22 losartan 50 mg PO DAILY 03/04/22 riboflavin (vitamin B2) 400 mg PO DAILY 03/04/22 trazodone 100 mg PO QHS 03/04/22 pantoprazole 40 mg PO DAILY #30 tab 03/08/22 Hospital Course Procedures 2-D Echocardiogram, Nuclear stress test and Transthoracic echo Summary of Care Provided Minutes Spent on Discharge: 20 Hospital Course: Patient is a 36-year-old male who was admitted to [facility] on 03/07/2022 for evaluation and management of chest pain. Nuclear stress test was obtained and not demonstrate any evidence of significant ischemia or infarction and LV systolic function was normal. Echocardiogram also obtained and demonstrated an EF of 55 to 60% with normal LV systolic function with an RVSP of 20 mmHg, which is normal. On day of discharge patient still described very mild chest pain, at a 2 out of 10. Given large patient body habitus and absence of any cardiovascular dysfunction, will initiate Protonix 40 mg daily to try and alleviate symptoms. Patient is to follow-up with his primary care provider within the next 2 weeks. All other home medications continued. Patient seen by Pete Encinas PA-C, under the supervision of Dr. Kay. Time spent on patient care: 20 minutes. Physical Exam Narrative Patient is a 36-year-old male comfortably resting in bed, alert and orient x3. Patient still reports mild chest pain, but reports that this is about a 2 out of 10. Denies development of any other symptoms. Does not appear in acute distress. Const alert, oriented x3 and no apparent distress HEENT normocephalic, head/scalp atraumatic and hearing grossly normal bilaterally Eyes PERRL, EOMs intact bilaterally and conjunctivae normal Neck no lymphadenopathy, supple and no JVD Resp normal respiratory effort, no retractions and no use of accessory muscles Cardio regular rate, regular rhythm and no JVD GI normal to inspection, nondistended, normoactive bowel sounds and soft to palpation Extremity normal to inspection, full ROM and no clubbing, cyanosis or edema Skin no rashes or lesions noted, no wounds and skin turgor normal Neuro CN's II-XII intact bilaterally Psych affect normal Weight / BMI Weight Weight: 284 lb 9.868 oz Body Mass Index (BMI) 37.5 ABG / Lab / Microbiology Data Result Diagrams: 03/08/22 05:06 03/08/22 05:06 Laboratory: Laboratory Results - last 24 hr 03/07/22 18:33: WBC 12.4 H, RBC 5.35, Hgb 15.8, Hct 45.7, MCV 85.4, MCH 29.5, MCHC 34.6, RDW Std Deviation 40.0, RDW Coeff of Maciej 13.1, Plt Count 279, MPV 9.8, Immature Gran % (Auto) 0.500, Neut % (Auto) 61.9, Lymph % (Auto) 29.6, [place] % (Auto) 6.9, Eos % (Auto) 0.8, Baso % (Auto) 0.3, Absolute Neuts (auto) 7.7, Absolute Lymphs (auto) 3.67, Nucleated RBC % 0 03/07/22 18:33: Sodium 142, Potassium 4.0, Chloride 111 H, Carbon Dioxide 24.0, Anion Gap 7, BUN 13, Creatinine 1.03, Estim Creat Clear Calc 110.97, Est GFR (MDRD) Af Amer 104, Est GFR (MDRD) Non-Af 86, BUN/Creatinine Ratio 12.6, Glucose 108 H, Calcium 9.1, Troponin I High Sens 25 03/07/22 20:40: Troponin I High Sens 18 03/08/22 00:51: Troponin I High Sens 14 03/08/22 05:06: WBC 8.6, RBC 4.87, Hgb 14.3, Hct 42.5, MCV 87.3, MCH 29.4, MCHC 33.6, RDW Std Deviation 42.0, RDW Coeff of Maciej 13.3, Plt Count 234, MPV 10.0, Immature Gran % (Auto) 0.700, Neut % (Auto) 51.5, Lymph % (Auto) 36.5, [place] % (Auto) 9.3, Eos % (Auto) 1.7, Baso % (Auto) 0.3, Absolute Neuts (auto) 4.4, Absolute Lymphs (auto) 3.15, Nucleated RBC % 0 03/08/22 05:06: Sodium 140, Potassium 3.7, Chloride 109 H, Carbon Dioxide 25.0, Anion Gap 6, BUN 17, Creatinine 0.95, Estim Creat Clear Calc 120.32, Est GFR (MDRD) Af Amer 114, Est GFR (MDRD) Non-Af 95, BUN/Creatinine Ratio 17.9, Glucose 108 H, Calcium 8.6, Triglycerides 123, Cholesterol 107, LDL Cholesterol 54, VLDL Cholesterol 25, HDL Cholesterol 28 L Radiography Diagnostic Testing: Radiology Impression Chest X-Ray 03/07/22 19:00 IMPRESSION: Nonacute portable x-ray examination of the chest. Electronically Signed: Subhash Mosley MD (Brooks) at 19:20 EDT Reading Location ID and State: [facility] / [place] , Service support , Echocardiogram 03/07/22 20:17 Interpretation Summary The estimated ejection fraction is 55-60 %. Normal LV systjolic function RVSP within normal 25 mmhg Ordering Physician: Hong Spicer Referring Physician: RONNA KAUFMAN Performed By: Adeline Mercado RDCS D/C Instructions Discharge Diet: No restrictions Weight Bearing Status: Weight bearing as tolerated Call your doctor if you observe: Fever of 101 or Higher, Numbness or Tingling, Shortness of breath, Dizziness, Chest pain, Increased palpitations (irregular heartbeat) and Calf discomfort Please Follow Up With: Primary care provider When: Within the next two weeks. Meaningful Use Info Meaningful Use Diagnoses (Choose all that apply): None applicable Discharge Plan Admission Admit Date/Time: 03/07/22 19:25 Primary Reason for Your Visit: Chest pain Attending Provider: Bianka Kay Primary Care Provider: Ronna Kaufman GIMP BUTTONHOLE MACHINE OPERATOR Consulting Providers: Hong Spicer Discharge Orders/Prescriptions Prescriptions: New pantoprazole 40 mg tablet,delayed release (DR/EC) 40 mg PO DAILY Qty: 30 RF: 0 Continued losartan 50 mg tablet 50 mg PO DAILY RF: 0 hydralazine 25 mg tablet 25 mg PO DAILY RF: 0 lamotrigine 25 mg tablet 25 mg PO DAILY RF: 0 trazodone 100 mg tablet 100 mg PO QHS RF: 0 hydrochlorothiazide 25 mg tablet 25 mg PO DAILY RF: 0 cholecalciferol (vitamin D3) [Vitamin D3] 125 mcg (5,000 unit) Tablet 125 mcg PO DAILY RF: 0 riboflavin (vitamin B2) 400 mg Tablet 400 mg PO DAILY RF: 0 Referrals / Follow Up: Ronna Kaufman GIMP BUTTONHOLE MACHINE OPERATOR, GIMP BUTTONHOLE MACHINE OPERATOR-C [Primary Care Provider] - Within 2 Weeks Disposition Disposition (needs filled in before D/C Order can be placed): Home, Self Care Documented by User: Dr. Bianka Kay MD 03/08/22 14:57 Providers Date of Admission: 03/07/22 Reason For Visit: CHEST PAIN Medications at Discharge Home Medications cholecalciferol (vitamin D3) [Vitamin D3] 125 mcg PO DAILY 03/04/22 hydralazine 25 mg PO DAILY 03/04/22 hydrochlorothiazide 25 mg PO DAILY 03/04/22 lamotrigine 25 mg PO DAILY 03/04/22 losartan 50 mg PO DAILY 03/04/22 riboflavin (vitamin B2) 400 mg PO DAILY 03/04/22 trazodone 100 mg PO QHS 03/04/22 pantoprazole 40 mg PO DAILY #30 tab 03/08/22 ABG / Lab / Microbiology Data Result Diagrams: 03/08/22 05:06 03/08/22 05:06 Discharge Plan Admission Admit Date/Time: 03/07/22 19:25 Primary Reason for Your Visit: Chest pain Attending Provider: Bianka Kay Primary Care Provider: Ronna Kaufman NP Consulting Providers: Hong Spicer Discharge Orders/Prescriptions Prescriptions: New pantoprazole 40 mg tablet,delayed release (DR/EC) 40 mg PO DAILY Qty: 30 RF: 0 Continued losartan 50 mg tablet 50 mg PO DAILY RF: 0 hydralazine 25 mg tablet 25 mg PO DAILY RF: 0 lamotrigine 25 mg tablet 25 mg PO DAILY RF: 0 trazodone 100 mg tablet 100 mg PO QHS RF: 0 hydrochlorothiazide 25 mg tablet 25 mg PO DAILY RF: 0 cholecalciferol (vitamin D3) [Vitamin D3] 125 mcg (5,000 unit) Tablet 125 mcg PO DAILY RF: 0 riboflavin (vitamin B2) 400 mg Tablet 400 mg PO DAILY RF: 0 Referrals / Follow Up: Ronna Kaufman GIMP BUTTONHOLE MACHINE OPERATOR, GIMP BUTTONHOLE MACHINE OPERATOR-C [Primary Care Provider] - Within 2 Weeks Disposition Disposition (needs filled in before D/C Order can be placed): Home, Self Care Charges/Coding Addendum Addendum: This patient was seen in conjunction with NATY Uriostegui. I have independently interviewed and examined the patient and reviewed pertinent historical, laboratory, and other data. Please refer to NATY Uriostegui's note for his patient's presentation, findings, and recommendations. I have reviewed and his note and concur with his documentation 36-year-old male with past medical history of hypertension, bipolar disorder who comes in with progressive chest pain that started before [place]. Chest pain has been intermittent. Patient complains of left-sided chest pain, that radiates to his neck. EKG did not show any acute ST-T changes. Patient was admitted to the progressive care unit and underwent nuclear stress test that was unremarkable. 2D echo showed EF 55 to 60% On the day of discharge, patient was seen and examined. He denied any pain. He was given a trial of PPI 40 mg p.o. daily Physical Exam: Gen: Comfortable, not pale, not jaundiced CVS:HS I +II, regular, no murmurs RESP: Diminished at lung bases GI: BS present and normal, soft, nontender, no palpable organs EXT:No edema Time spent coordinating patient's care, discussing with nursing, discussing with subspecialists: 25 minutes Visit Charges OBSV E&M: 53523 Observation care discharge
== END 2022-03-08 13:46 | disposition home or self-care (01) ==
LOC: ED 18:57 → PCU 19:40
PROVIDERS: Admitting Provider Hospitalist; Emergency Provider Emergency Medicine; PCP Nurse Practitioner Family; Visit Provider Internal Medicine
DX: I20.8 Other forms of angina pectoris (principal); F31.9 Bipolar disorder, unspecified; R07.89 Other chest pain; I10 Essential (primary) hypertension; M79.602 Pain in left arm; R11.2 Nausea with vomiting, unspecified; R51.9 Headache, unspecified; Z79.899 Other long term (current) drug therapy; F41.9 Anxiety disorder, unspecified; R94.31 Abnormal electrocardiogram [ECG] [EKG]
CPT/HCPCS: 36415; 71045; 78452; 80048; 80061; 84484; 85025; 93005; 93017; 93306; 99218; 99285; A9500; Q9957; A4216; C8929; G0378

== ENCOUNTER 2024-03-22 14:52 | Emergency (ER) | payer SELFPAY ==
[2024-03-22 14:53] VITALS: BP 126/86; PULSE 118; RESP 22; TEMP 36.8; O2SAT 99; BMI 36.0
[2024-03-22 15:24] VITALS: BP 154/101; PULSE 104; RESP 24; O2SAT 98
--- NOTE | 2024-03-22 15:48 | EKG12_ITS ---
Test Reason : Blood Pressure : / mmHG Vent. Rate : 094 BPM Atrial Rate : 094 BPM P-R Int : 150 ms QRS Dur : 092 ms QT Int : 338 ms P-R-T Axes : 013 017 -23 degrees QTc Int : 422 ms Normal sinus rhythm Minimal voltage criteria for LVH, may be normal variant ( R in aVL ) Septal infarct , age undetermined Inferior infarct , age undetermined Abnormal ECG Confirmed by TIN HUTCHINS, TANYA ([id number]), medical transcription editor JOEL CHEEK ([id number]) on 03/26/2024 6:15:14 AM Referred By: Confirmed By:ARIELLE CASTLE MD
--- NOTE | 2024-03-22 15:50 | EDS_ITS ---
HPI History of Present Illness Chief Complaint: Hypertension Narrative Narrative: 38-year-old male with history of hypertension and anxiety presenting with elevated blood pressures. He states that he was previously seen [facility] Medical History Migraines Hypertension Anxiety Home Medications ?Medication ?Instructions ?Recorded ?Last Taken ?Type hydralazine 25 mg tablet 25 mg PO DAILY blood pressure 03/04/22 Unknown History Allergy/AdvReac Type Severity Reaction Status Date / Time No Known Allergies Allergy Verified 03/07/22 18:37 Family History Other Diabetes Heart disease Hypertension Social History (Updated 03/22/24 @ 15:24 by Evelyn Davis) household members: spouse and children current occupational status: employed Smoking Status: Never smoker EXAM Physical Exam Const Vital Signs: 03/22/24 14:53 03/22/24 15:24 03/22/24 15:29 Temperature 98.2 F Temperature Source Temporal Pulse Rate 118 H 104 H Respiratory Rate 22 H 24 H Respiratory Pattern Tachypnea Blood Pressure 126/86 H 154/101 H Blood Pressure Mean 99 118 Pulse Ox 99 98 Oxygen Delivery Method Room Air Discharge Plan Triage Chief Complaint: Hypertension ED Provider: Robert Cueto Dx/Rx/DC Orders Prescriptions: No Action hydralazine 25 mg tablet 25 mg PO DAILY Patient Comments: TAKE 1 TABLET BY MOUTH THREE TIMES DAILY for 7 (SEVEN) days Primary Care Provider: Ronna Kaufman NP Referrals: Ronna Kaufman PROSECUTING ATTORNEY, PROSECUTING ATTORNEY-C [Primary Care Provider] - Print Language: Swiss
--- NOTE | 2024-03-22 15:52 | RAD_ITS ---
STUDY: X-RAY CHEST REASON FOR EXAM: Male, 38 years old. CHEST PAIN chest pain TECHNIQUE: XR Chest 1 View COMPARISON: 5.8.22 FINDINGS: There is no demonstrated pleural abnormality. Normal size heart. Normal mediastinum and brenda. Normal visualized pulmonary arteries. Normal visualized aortic arch and descending thoracic aorta. Normal visualized thoracic spine. Normal visualized ribs, clavicles, and shoulders. There are no acute findings of the upper abdomen. RAD/Chest 1 View (Portable) IMPRESSION: There are no acute findings. Electronically Signed: Clark Sepulveda MD at 16:06 EDT ,
--- NOTE | 2024-03-22 15:54 | EDS_ITS ---
HPI History of Present Illness Chief Complaint: Hypertension Narrative Narrative: 38-year-old male with history of hypertension and anxiety presenting with elevated blood pressures. He states that he was previously seen at [facility] about 2 years ago with similar symptoms. 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 He also states that his 's mother is dying of cancer. There is been a lot of stress. He states that his is a mental health worker and is tried to get him tools to calm him down but he has not seen a professional otherwise because he has not been able to obtain due to insurance. Last time he was discharged home and he had a stress test and follow-up which was normal. Previously was on hydralazine, HCTZ, losartan but currently his nurse practitioner who we previously saw ordered him hydralazine 25 mg tabs 1 to 2 tablets by mouth 3 times a day. He states this is a primary care and her name is Ronna Kaufman. He states that he only takes these sporadically but was told to take extra of these when he has high blood pressures. His blood pressures are in the 190s today although he is very anxious. He does have some chest tightness and feels a little short of breath. He is not on any medication for anxiety. CVD Risk Factors: Positive for Hypertension; Negative for Diabetes or Hypercholesterolemia PE Risk Factors: Negative for Recent Travel/Surgery, Recent Immobilization, Prior DVT or PE or OCP + Smoking + >/=35 PFSH PFSH Medical History Migraines Hypertension Anxiety Home Medications ?Medication ?Instructions ?Recorded ?Last Taken ?Type hydralazine 25 mg tablet 25 mg PO DAILY blood pressure 03/04/22 Unknown History carvedilol 12.5 mg tablet (Coreg) 12.5 mg PO BID #120 tabs 03/22/24 Unknown Rx hydroxyzine pamoate 25 mg capsule 25 mg PO TID PRN anxiety #30 caps 03/22/24 Unknown Rx (Vistaril) Allergy/AdvReac Type Severity Reaction Status Date / Time No Known Allergies Allergy Verified 03/07/22 18:37 Family History Other Diabetes Heart disease Hypertension Social History household members: spouse and children current occupational status: employed Smoking Status: Never smoker ROS ROS ED Review of Systems ROS Unobtainable: Denies due to encephalopathy Constitutional Constitutional ED: Denies chills or fever(s) Eyes Eyes: Denies none ENT ENT ED: Denies rhinorrhea or sore throat Cardiovascular Cardiovascular: Reports as per HPI and palpitations Respiratory/Chest Respiratory/Chest: Reports dyspnea; Denies cough Gastrointestinal Gastrointestinal: Denies nausea or vomiting Genitourinary Genitourinary ED: Denies dysuria Musculoskeletal Musculoskeletal: Denies arthralgias Neurologic Neurologic: Denies headache(s) Psychiatric Psychiatric: Reports anxiety Endocrine Endocrinology: Denies polyphagia or polyuria Hematologic/Lymphatic Hematologic/Lymphatic: Denies easy bleeding EXAM Physical Exam Const Vital Signs: 03/22/24 14:53 03/22/24 15:24 03/22/24 15:29 Temperature 98.2 F Temperature Source Temporal Pulse Rate 118 H 104 H Respiratory Rate 22 H 24 H Respiratory Pattern Tachypnea Blood Pressure 126/86 H 154/101 H Blood Pressure Mean 99 118 Pulse Ox 99 98 Oxygen Delivery Method Room Air 03/22/24 15:48 03/22/24 17:00 03/22/24 17:16 Temperature Temperature Source Pulse Rate 67 Respiratory Rate 19 H Respiratory Pattern Blood Pressure 173/116 H 164/85 H Blood Pressure Mean 135 111 Pulse Ox 98 Oxygen Delivery Method Room Air Room Air 03/22/24 18:11 Temperature 98.2 F Temperature Source Pulse Rate 93 Respiratory Rate 14 Respiratory Pattern Blood Pressure 167/106 H Blood Pressure Mean 126 Pulse Ox 98 Oxygen Delivery Method Positive well nourished General Appearance ED: NAD HEENT Reports moist mucous membranes normocephalic Eyes PERRL and EOMs intact bilaterally Neck no lymphadenopathy Chest Wall inspection of chest normal and palpation of chest normal Resp normal respiratory effort and clear to auscultation bilaterally Auscultation: Negative for rales, rhonchi or wheezes Cardio regular rhythm Rate: tachycardic Neuro oriented x3 and CN's II-XII intact bilaterally Sensorium / Orientation: awake and alert Motor Exam: strength 5/5 throughout Psych Mood & Affect: anxious and tearful Skin no rashes or lesions noted Heart Score History: Slightly/Non-Suspicious ECG: Normal Age: </= 45 years Risk Factors: No Risk Factors Troponin: </= Normal Limit Score: 0 MDM MDM MDM Narrative Medical decision making narrative: Differential includes but is not limited to ACS, PE, aortic dissection, pneumonia, pneumothorax, muscle strain, costochondritis, anxiety. CBC to assess white blood cell count, hemoglobin complaints. BMP to assess renal function, electrolytes, glucose. High-sensitivity troponin EKG to assess for ischemia/dysrhythmia. Chest x-ray to rule out pneumonia. Reviewed previous records and patient presented similarly in the past. He had a negative stress test. Patient is very anxious. He was given hydroxyzine. Differential includes anxiety, ACS, pneumonia, dehydration, anemia, electrolyte abnormalities. Considered PE however patient does not have sharp pleuritic pain. He has no risk factors for this. CBC was obtained to assess white blood cell count, hemoglobin, platelets. BMP to assess renal function, electrolytes, glucose. High-sensitivity troponin and EKG to assess for ischemia/arrhythmia. Chest x-ray to rule out pneumonia or other acute process. CBC shows mild leukocytosis 12.7. Hemoglobin 15.9. Platelets are 299. Renal function within normal limits. Potassium slightly low at 3.4. High-sensitivity troponin is 12. EKG on my interpretation shows a sinus rhythm at 94 bpm without sign ischemic change or ectopy. Chest x-ray my interpretation shows no acute cardiopulmonary process. Radiologist interprets this and agrees. Patient was seen by director social and had some resources given to him for his anxiety as he does not have anybody formally does have any healthcare insurance. Discussed also with Dr. tSoner who is on-call for cardiology and he recommended discontinuing the hydralazine and started him on Coreg 12.5 mg p.o. twice daily. He will also be given Vistaril 25 mg 3 times daily for anxiety. Patient is counseled that he will need follow-up for both. Discharged home in stable condition. Impression: 1. Chest pain 2. Anxiety 3. Hypertension 4. Hypokalemia Lab Data Attestation: I reviewed the patient's lab results. Labs: Laboratory Results - last 24 hr 03/22/24 16:04 WBC 12.7 H RBC 5.46 Hgb 15.9 Hct 47.2 MCV 86.4 MCH 29.1 MCHC 33.7 RDW Std Deviation 41.8 RDW Coeff of Maciej 13.2 Plt Count 299 MPV 10.1 Immature Gran % (Auto) 0.400 Neut % (Auto) 60.4 Lymph % (Auto) 29.2 [place] % (Auto) 8.8 Eos % (Auto) 0.7 Baso % (Auto) 0.5 Absolute Neuts (auto) 7.7 Absolute Lymphs (auto) 3.70 Nucleated RBC % 0 Sodium 138 Potassium 3.4 L Chloride 108 H Carbon Dioxide 21.0 Anion Gap 9 BUN 15 Creatinine 0.89 Estim Creat Clear Calc 153.63 Est GFR (MDRD) Af Amer 123 Est GFR (MDRD) Non-Af 101 BUN/Creatinine Ratio 16.9 Glucose 104 Calcium 9.8 Troponin I High Sens 12 Radiography Diagnostic Testing: Clinical Impression(s) from Imaging Studies Chest X-Ray 03/22/24 15:52 IMPRESSION: There are no acute findings. Electronically Signed: Clark Sepulveda MD at 16:06 EDT Reading Location ID and State: [facility] / [place] , Service support , Discharge Plan Triage Chief Complaint: Hypertension ED Provider: Robert Cueto Dx/Rx/DC Orders Instructions: ED Anxiety Reaction, ED Hypertension, Established Prescriptions: New carvedilol [Coreg] 12.5 mg tablet 12.5 mg PO BID Qty: 120 0RF Rx Instructions: must administer with a meal/food hydroxyzine pamoate [Vistaril] 25 mg capsule 25 mg PO TID PRN (Reason: anxiety) Qty: 30 0RF No Action hydralazine 25 mg tablet 25 mg PO DAILY Patient Comments: TAKE 1 TABLET BY MOUTH THREE TIMES DAILY for 7 (SEVEN) days Primary Care Provider: Ronna Kaufman NP Referrals: Ronna Kaufman ELECTRONICS ENGINEERING TECHNOLOGIST, ELECTRONICS ENGINEERING TECHNOLOGIST-C [Primary Care Provider] - Print Language: Barb[place] Disposition Disposition: Home, Self Care
[2024-03-22 16:12] LABS: Absolute Neutrophil Count 7.7 X10^3/uL (2.0-7.7); Basophil# 0.06 X10^3/uL; Basophil% 0.5 % (0-1); Eosinophil# 0.09 X10^3/uL; Eosinophils% 0.7 % (0-5); Hematocrit 47.2 % (40-54); Hemoglobin 15.9 g/dL (13.0-16.5); Lymphocyte % 29.2 % (19-41); Mean Corp Hgb Conc 33.7 g/dL (32-36); Mean Corpuscular Hgb 29.1 pg (27.0-32.0); Mean Corpuscular Volume 86.4 fL (80-94); Mean Platelet Vol. 10.1 fl (6.2-12.0); Monocyte# 1.11 X10^3/uL; Monocyte% 8.8 % (0-10); NRBC Flagged by Analyzer 0 % (0-5); Neutrophil # 7.66 X10^3/uL (2.7-7.7); Neutrophil % 60.4 % (47-70); Platelet Count 299 K/mm3 (150-450); RBC Distribution Width CV 13.2 % (11.6-14.6); RBC Distribution Width SD 41.8 fl (35.1-43.9); Red Blood Count 5.46 M/mm3 (4.6-6.2); White Blood Count 12.7 K/mm3 (4.4-11.0)
[2024-03-22] MEDS: hydrOXYzine PAM 25 MG Capsule PO (16:23)
[2024-03-22 16:29] LABS: Anion Gap 9 (5-15); BUN 15 mg/dL (7-18); BUN/Creat Ratio 16.9 RATIO (10-20); Calcium,Total 9.8 mg/dL (8.5-10.1); Chloride 108 mmol/L (98-107); Creatinine, Serum 0.89 mg/dL (0.70-1.30); EST Glomerular Filtration Rate 101 mL/min (>60); Est Glom Filt Rate - Afr Amer 123 mL/min (>60); Estimated Creatinine Clearance 153.63 ml/min; Glucose 104 mg/dL (74-106); Potassium 3.4 mmol/L (3.5-5.1); Sodium Level 138 mmol/L (136-145); Troponin-I HS 12 pg/mL (3.0-78.0)
[2024-03-22 17:00] VITALS: BP 173/116; PULSE 67; RESP 19; O2SAT 98
[2024-03-22 17:16] VITALS: BP 164/85
[2024-03-22] MEDS: Carvedilol 12.5 MG Tablet PO (18:09)
[2024-03-22 18:11] VITALS: BP 167/106; PULSE 93; RESP 14; TEMP 36.8; O2SAT 98
--- NOTE | 2024-03-22 18:22 | ED.RN ---
pt home supply of hydralizine disposed of in med disposal bag-wittnessed by ema carreon.
== END 2024-03-22 18:25 | disposition home or self-care (01) ==
PROVIDERS: Emergency Provider Student in an Organized Health Care Education/Training Program; PCP Nurse Practitioner Family; Visit Provider Student in an Organized Health Care Education/Training Program
DX: F41.9 Anxiety disorder, unspecified (principal); R07.9 Chest pain, unspecified; E87.6 Hypokalemia; I10 Essential (primary) hypertension; Z56.3 Stressful work schedule; Z63.6 Dependent relative needing care at home; Z79.899 Other long term (current) drug therapy
CPT/HCPCS: 71045; 80048; 84484; 85025; 93005; 99285; A4216